=== PATIENT | female | born 1950 | race Caucasian/White ===

== ENCOUNTER 2023-05-14 06:03 | Day surgery (SDC) | payer MEDICARE, OTHER, SELFPAY ==
[2023-05-14] VITALS (11 sets, daily range): BP systolic 94–142; BP diastolic 44–72; BMI 42.2
[2023-05-14 07:03] LABS: Glucose - Point of Care 139 mg/dl (70-99)
[2023-05-14] MEDS: NSS 314 ML IV (07:10)
[2023-05-14] MEDS: LOW STRENGTH ASPIRIN 81 MG PO (07:18)
[2023-05-14] MEDS: NSS 1000 IV (08:57)
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
[2023-05-14 09:19] LABS: Glucose - Point of Care 111 mg/dl (70-99)
--- NOTE | 2023-05-14 09:47 | ITS.CL.CATH ---
[employer] - Catheterization
Cardiac Catheterization
Procedure Report:
RIGHT AND LEFT HEART CATHETERIZATION
Date of Procedure: May 14, 2023
Primary Care Physician: Dr. Elsi Collazo
Primary Wheelchair Rental Clerk: Dr. Haresh Bueno
Procedures performed:
1: Coronary angiography
2: Right heart catheterization
INDICATION: The patient is a 72-year-old woman with a past medical history significant for hypertension, diabetes, and obesity who was admitted to [facility] recently after being found on the floor by her son. She clearly had a E. coli
urinary tract infection which was treated. Echocardiography showed LV systolic dysfunction with a visually estimated ejection fraction of 35 to 40% with severe aortic stenosis mean gradient 48 mmHg with a calculated valve area of 0.52 cm� and an
aortic valve dimensionless index of 0.16. She is referred for right and left heart catheterization in preparation for aortic valve intervention. Of note, creatinine bumped and was 1.6 on preprocedure labs.
ACCESS: The patient was prepped and draped in usual sterile fashion. A 5 Slovak sheath was placed in the right radial artery using the Seldinger over the wire technique. A 6 Slovak sheath was then placed in the right common femoral vein using the
same technique.
HEMODYNAMIC FINDINGS (mmHg):
RA(a,v,m): 10, 8, 7
RV(s/d,EDP): 38/4, 10
PA(s/d/m): 38/19, 24
PCWP(a,v,m): 17, 21, 16
LV(s/d,EDP): Valve not crossed
Ao(s/d,m): 137/61, 89
Oxygen Saturations (mg/dl):
PA: 69% on room air
LV: 98% on room air
Cardiac Output/Index (l/min / l/min/m2):
Estimated Julio Cesar Method: 4.3 / 2.1
ANGIOGRAPHIC FINDINGS:
Single-plane Left Ventriculography performed in the MCCORD projection: Valve not crossed.
Coronary Angiography:
Dominance: Left
Left Main: Normal
Left Anterior Descending: The left anterior descending artery is a large-caliber vessel that gives rise to 3 medium caliber diagonal branches. These vessels appear widely patent with no clear flow-limiting disease.
Left Circumflex: The left circumflex is a relatively large caliber dominant system that gives rise to a large first obtuse marginal branch, small second obtuse marginal branch, a small left-sided posterior left ventricular branch, and a large
left-sided posterior descending artery. These vessels are widely patent with no focal disease.
Right Coronary: Nondominant vessel that is widely patent.
Fluoroscopy Time (min): 7.3
Radiation Dose (mGy): 518
DAP (Gy.cm2): 51
Closure device: None. A TR band was placed in the right wrist and hemostasis achieved with the venous sheath using manual pressure alone.
Complications: None.
ASSESSMENT:
1: Normal coronary arteries.
2: Mildly elevated left ventricular filling pressures.
CONCLUSIONS and RECOMMENDATIONS:
1: Proceed with TAVR evaluation.
2: Will repeat echo today to reassess LV function. Hold losartan for now given creatinine elevation. Will consider holding spironolactone if ejection fraction has recovered. Very close clinical follow-up.
Miguel Li M.D.
Copy to: Dr. Elsi Jackman
== END 2023-05-14 11:55 | disposition home or self-care (01) ==
LOC: CATH 06:03
PROVIDERS: ATTENDING PHYSICIAN Internal Medicine Interventional Cardiology; FAMILY PHYSICIAN Internal Medicine
DX: I08.3 Combined rheumatic disorders of mitral, aortic and tricuspid valves (principal); R55 Syncope and collapse; I13.0 Hypertensive heart and chronic kidney disease with heart failure and stage 1 through stage 4 chronic kidney disease, or unspecified chronic kidney disease; N18.30 Chronic kidney disease, stage 3 unspecified; E11.22 Type 2 diabetes mellitus with diabetic chronic kidney disease; Z87.440 Personal history of urinary (tract) infections; Z79.84 Long term (current) use of oral hypoglycemic drugs; I42.9 Cardiomyopathy, unspecified; Z87.891 Personal history of nicotine dependence; I45.10 Unspecified right bundle-branch block; Z91.81 History of falling; E66.9 Obesity, unspecified; Z79.82 Long term (current) use of aspirin
CPT/HCPCS: 82962; 93306; 93456; C1769; C1894; Q9967

== ENCOUNTER → 2023-05-22 09:26 | Outpatient (REF) | payer MEDICARE, OTHER, SELFPAY | LOC: RAD 09:26 | PROVIDERS: ATTENDING PHYSICIAN Nurse Practitioner Acute Care; FAMILY PHYSICIAN Internal Medicine | DX: I35.0 Nonrheumatic aortic (valve) stenosis (principal) | CPT/HCPCS: 74174; 75572; Q9967 ==

== ENCOUNTER 2023-06-05 09:23 | Inpatient (IN) | payer MEDICARE, OTHER, SELFPAY ==
[2023-05-28 08:27] VITALS: BMI 40.8
[2023-05-28 09:23] LABS: % Basophils 0.7 % (0-2); % Eosinophils 4.9 % (0-6); % Immature Granulocytes 0.5 % (0-0.5); % Lymphocytes 23.1 % (20.5-51.1); % Neutrophils 60.8 % (42.2-75.2); Absolute Eosinophils 0.2 10^3/uL (0-0.7); Absolute Monocytes 0.4 10^3/uL (0.1-0.6); Absolute Neutrophils 2.6 10^3/uL (1.4-6.5); Hematocrit 32.4 % (37.0-47.0); Hemoglobin 10.4 g/dL (12.0-16.0); Mean Corp Hgb Conc. 32.1 g/dL (33.0-37.0); Mean Corpuscular Hgb 27.7 pg (27.0-31.0); Mean Corpuscular Volume 86.4 fL (81.0-99.0); Mean Platelet Volume 10.3 fL (7.4-10.4); Nucleated Red Blood Cells % 0 %; Platelet Count 272 10^3/uL (130-400); Red Blood Cell Count 3.75 10^6/uL (4.20-5.40); Red Cell Dist. Width 15.5 % (11.5-14.5); White Blood Cell Count 4.3 10^3/uL (4.8-10.8)
[2023-05-28 09:41] LABS: INR 1.03; PT 13.6 Sec (11.4-14.6)
[2023-05-28 09:42] LABS: APTT 32.6 Sec (23.4-35.0)
[2023-05-28 09:44] LABS: Urine Albumin Negative (Neg - Trace); Urine Bilirubin Negative (Negative); Urine Character Clear (Clear); Urine Color Yellow; Urine Glucose Negative (Negative); Urine Ketone Negative (Negative); Urine Leukocyte Negative (Negative); Urine Nitrite Negative (Negative); Urine Occult Blood Negative (Negative); Urine Specific Gravity 1.015 (<1.030); Urine Urobilinogen Negative (Neg - 1+)
[2023-05-28 10:23] LABS: ALT (SGPT) 14 U/L (0-35); AST (SGOT) 26 U/L (14-36); Alkaline Phosphatase 86 U/L (38-126); Blood Urea Nitrogen 30 mg/dl (7-17); Calcium 9.4 mg/dl (8.4-10.2); Carbon Dioxide 25 mmol/L (22-30); Chloride 105 mmol/L (98-107); Direct Bilirubin 0.2 mg/dl (0.0-0.4); Estimated Creatinine Clearance 48 ml/min; Glucose 105 mg/dl (70-99); Sodium 135 mmol/L (135-145); Total Bilirubin 0.8 mg/dl (0.2-1.3); Total Protein 6.7 g/dl (6.3-8.2)
[2023-05-28 10:26] LABS: NT-proBNP 5810 pg/ml
--- NOTE | 2023-05-28 10:59 | CM ---
Met with Mrs. Melchor and her son in [facility]. She states prior to admission she resides alone in a one aoohn[place]bercc[place]pgne home with two steps to enter. She states prior to admission she was independent with ambulation and adls. She states she has
alot of DME in the home that was other family members, but she does not have any DME that she is using. She states she does not have a prescription plan and uses [facility]. She states her family will be checking in on her when she goes home. The
discharge plan is to return home with family support and a home visit by the Cardiothoracic Transitional Care Nurse when medically stable.
We reviewed pre-op and post- op routines. We reviewed the shower instructions. She has the soap, written instructions and the TAVR Educational Booklet. She was also given a copy of her lab work to take to her PCP. We also reviewed restrictions
including lifting and driving restrictions. We discussed a home visit by the Cardiothoracic Transitional Care Nurse. She is agreeable to a home visit. The plan is for TAVR on , 06/05/23.
[2023-05-28 12:16] LABS: Glycohemoglobin (HgbA1c) 6.5 % (4.0-5.6)
[2023-06-05] VITALS (21 sets, daily range): BP systolic 89–164; BP diastolic 38–122; BMI 41.0
[2023-06-05 10:13] LABS: Glucose - Point of Care 106 mg/dl (70-99)
--- NOTE | 2023-06-05 12:13 | W.PN.UPDATE ---
Addendum entered and electronically signed by Fernando Villareal MD 06/05/23 12:36:
Attending addendum: Patient has heterogeneous thyroid nodule/mass noted on CT scan. Primary cardiology was informed by Tucker text and reportedly the patient's primary care physician was made aware of these findings. Stressed the need for follow-up
with her PCP for thyroid issue
Original Note:
Update Note
Progress Note Update
Attending addendum patient seen and examined prior to the procedure. Chart reviewed and procedural details reviewed with patient. Risk and benefits were explained in depth and patient expressed some understanding and willingness to proceed
[2023-06-05] MEDS: ANCEF 10 IV (12:47)
[2023-06-05 13:45] LABS: ACT-LR - POC 329 Seconds (116-155)
--- NOTE | 2023-06-05 13:52 | W.CVOR.SURPR ---
CVOR Surgeon Immed Pre Op
-
I have examined this patient prior to performance of the scheduled procedure.
The patient's condition is unchanged from the time of the dictated/written History and
Physical and the patient is able to undergo the scheduled procedure.
--- NOTE | 2023-06-05 13:53 | W.IMMPOSTOP ---
Surgical Immed Post Op Note
-
[id number]
STRUCTURAL HEART PROCEDURE NOTE: TAVR
Preoperative Dx:
Severe aortic stenosis; P/M: 108/65, NIKOLAS 0.6)
Hx of CHF
HTN
RBBB
NIDDM
CKD3
Postoperative Dx:
Same
Procedures:
1) L CFV access w/ U/S and fluoroscopic guidance, Seldinger technique, 6Fr sheath placement
2) L BILLING ASSISTANT access w/ tactile, U/S, and fluoroscopic guidance, micropuncture technique, limited angiography, 6Fr sheath placement
3) R BILLING ASSISTANT access w/ tactile, U/S, and fluoroscopic guidance, micropuncture technique, limited angiography, 6Fr sheath placement
4) Placement of perclose sutures x 2 into R BILLING ASSISTANT, 8Fr sheath placement
5) Placement of temporary RV pacing wire w/ threshold testing
6) Placement of pigtail catheter in RCC w/ limited aortography & confirmation of coplanar valve deployment angle
7) Placement of Zhao E-sheath via R BILLING ASSISTANT (systemic heparinization)
8) Wire purchase across stenotic AV (AL-1, soft-tip straight, extra-stiff) w/ LVEDP assessment (20mmHg)
9) R TF TAVR w/ placement of 23mm SERVANDO 3 valve
10) Completion aortography
11) Completion TTE (mean gradient 7 & 9 mmHg, trace AI)
12) Removal of ntyhs-[id number]-nxlffp & Zhao E-sheath w/ R BILLING ASSISTANT mgmt w/ perclose sutures and manual pressure
13) Completion R ileofemoral angiography
14) Removal of temporary pacing wire
15) Removal of L BILLING ASSISTANT 6Fr sheath w/ mgmt w/ 6Fr angioseal and manual pressure
16) Removal of L CFV 6Fr sheath w/ manual pressure
Slot Key Person:
Dr. Fernando Villareal
Cardiac Surgeon:
Dr. Stevo Dc
Anesthesia:
MAC & local to B/L groins
Implants:
Zhao [employer]iences, 23mm Model [id number], Serial [id number]
Perclose x 2
6Fr angioseal x 1
Complications:
None
Cath Data:
Start: 1257hrs, Deploy: 1334hrs, End: 1346hrs
FT: 7.9min, mGy: 343.99, DAP: 42.8864, Contrast: 85mL
Post-TTE: mean 7 & 9mmHg, trace AI
Condition:
Stable/guarded to recovery
--- NOTE | 2023-06-05 13:58 | ITS.CL.TAVR ---
Lifestyle [facility] Farmer - TAVR Report
TAVR PRocedure
Procedure Report:
TRANSCATHETER AORTIC VALVE REPLACEMENT
Date of Procedure: June 05, 2023
Referring: Dr. Marc Bueno
Operators: Drs. Fernando Villareal and Stevo Dc
PROCEDURE PERFORMED:
1. Successful placement of 23 mm Zhao Kelly S3 aortic valve via right common femoral approach.
PREPROCEDURE NYHA CLASS: 3
DESCRIPTION OF PROCEDURE: The patient was referred for assessment of severe symptomatic aortic stenosis and following a comprehensive evaluation it was felt that transcatheter aortic valve replacement (TAVR) would be the most appropriate treatment.
Informed consent was obtained prior to the procedure. A 'time-out' was called and the procedural plan was verbally confirmed by anesthesia, surgery, perfusion, and blood bank laboratory professional staff.
Arterial was obtained in the left common femoral artery using ultrasound guidance and micropuncture technique. A 6 Fr sheath was inserted. Ultrasound guidance was then utilized to gain access into the left common femoral vein and a 6 Fr sheath was
inserted. Angiography of the left common femoral arteriotomy site confirmed appropriate positioning of the arteriotomy for closure with a 6 Saudi Arabian Angio-Seal at the conclusion of the procedure. Attention was then turned to the right common femoral
artery. Ultrasound guidance was utilized and access was obtained using ultrasound guidance. Angiography through the micropuncture sheath revealed appropriate positioning of the arteriotomy for preclosure with 2 Perclose devices. A 0.035 inch
J-wire was then reinserted through the micropuncture sheath and a 6 Fr sheath was then inserted.
A transvenous pacemaker wire was then advanced from the left common femoral vein to the right ventricular apex where excellent pacing thresholds were obtained.
An angled pigtail catheter was then advanced through the left common femoral sheath and positioned in the proximal ascending thoracic aorta / right coronary cusp. Angiography was performed to define a coplanar angle facilitating positioning and
delivery of the TAVR device. SRI LANKAN 26/CAU 1 appear to be a reasonable coplanar angle.
Preclosure of the right femoral arteriotomy was then performed using 2 Perclose devices and was followed by placement of an 8 Fr arterial sheath.
An AL-1 catheter was then advanced to the proximal descending thoracic aorta over 0.035' J-tipped guidewire. An Amplatz Extra-Stiff wire was then advanced through the AL-1 catheter to the proximal descending thoracic aorta. The AL-1 catheter was
removed and the supportive wire was utilized to facilitate delivery of the Zhao eSheath and dilator. Heparin, 8500 units, was administered and the ACT was monitored throughout the procedure.
The AL-1 catheter was then readvanced through the Zhao eSheath. The 0.035' stiff wire was allowed to drift across the aortic arch and the AL1 was positioned just above the aortic valve. The stenotic leaflets were probed with a Soft-tip Straight
wire. The aortic leaflets were crossed and the AL-1 catheter followed the Soft-tip Straight wire to the mid left ventricle. The wire was removed. Left ventricular end-diastolic pressures was measured at 20 mmHg.
An Amplatz Extra-Stiff wire with a generous curved tip was then advanced to the mid left ventricle. The AL-1 catheter was removed and the Amplatz wire was left in place in order to facilitate delivery of the Zhao delivery system. A 23 mm
Zhao KELLY S3 valve was brought to the table and the orientation of the valve on the balloon delivery system was confirmed by all operators. The KELLY S3 valve was advanced through the eSheath and into the proximal descending thoracic aorta.
The KELLY valve was centered on the delivery balloon and the entire system was retroflexed as across the aortic arch in an SRI LANKAN projection. The KELLY S3 delivery system was then advanced across the stenotic aortic leaflets. The pusher was
retracted. Angiography confirmed appropriate positioning of the valve and rapid pacing was undertaken. The 23 mm KELLY S3 valve was deployed during rapid pacing. Valve deployment was uneventful. Aortography following valve deployment suggested
wire associated aortic insufficiency. The Amplatz Extra-Stiff wire was removed and transthoracic echocardiogram was performed. Trace aortic insufficiency was noted with a post valve deployment gradient of 9 mmHg.
The Zhao valve delivery system was removed. The Zhao eSheath was removed and the Perclose knots were advanced to the arteriotomy site with excellent hemostasis. Angiography after the Perclose knots were advanced to the arteriotomy site and
demonstrated good distal runoff.
A 6 Saudi Arabian Angio-Seal was then utilized to obtain hemostasis in the left common femoral artery. The temporary pacemaker was removed and manual pressure was held over the 6 Saudi Arabian femoral venous access.
Protamine was administered to reverse the intravenous anticoagulant.
Fluoro Time: 7.9 min, Dose: 344 mGy, DAP : 42.9 Gy.cm2
CONCLUSIONS:
1. Severe symptomatic aortic stenosis. Successful deployment of a 23 mm KELLY S3 valve with a post valve deployment mean gradient of 9 mmHg with trace aortic insufficiency
2. The right arteriotomy was closed with 2 Perclose devices and the left common femoral arteriotomy was closed using a 6 Saudi Arabian Angio-Seal
Copy to: Dr. Marc Bueno
--- NOTE | 2023-06-05 14:35 | PTCARENOTE ---
Rec'd Pt s/p TAVR procedure after 1 hr of recovery, A,A+O, denies pain, bilat femoral dsgs D+I
[2023-06-05] MEDS: ANCEF IV (14:46)
--- NOTE | 2023-06-05 14:58 | W.PN.UPDATE ---
Update Note
Progress Note Update
Reviewed Ms. Melchor with the heart team in the preTAVR SDM meeting and decided on a 23mm S3 via right transfemoral access. Patient will resume aspirin post TAVR. LVEDP 20 mmHg. #23 mm S3 (serial# [id number]) successfully deployed via (R) TF access.
Post implant MG 9mmHg.
[2023-06-05 15:18] LABS: Glucose - Point of Care 121 mg/dl (70-99)
--- NOTE | 2023-06-05 15:37 | CM ---
Reviewed chart. Mrs. Melchor is in the operating room today. Prior to admission she resides alone in a one story rancher-style home with two steps to enter. Prior to admission she was independent with ambulation and adls. She has a lot of DME in
the home that was other family members but she is not using any of it. She does not have a prescription plan and uses [facility]. She has family members that will be checking in on her when she goes ho,e. Medical work-up in progress. The discharge
plan is to return home with family support and a home visit by the Cardiothoracic Transitional Care Nurse when medically stable.
[2023-06-05 15:45] LABS: ACT-LR - POC > 397 Seconds (116-155)
[2023-06-05 15:47] LABS: Blood Urea Nitrogen 33 mg/dl (7-17); Calcium 8.8 mg/dl (8.4-10.2); Chloride 101 mmol/L (98-107); Estimated Creatinine Clearance 58 ml/min; Glucose 113 mg/dl (70-99); Potassium 4.3 mmol/L (3.5-5.1); Sodium 135 mmol/L (135-145); eGFR 59.49
[2023-06-05 15:58] LABS: Carbon Dioxide 24 mmol/L (22-30)
[2023-06-05 17:22] LABS: Glucose - Point of Care 110 mg/dl (70-99)
[2023-06-05] MEDS: LASIX 20 MG PO (18:40)
[2023-06-05] MEDS: LIPITOR 20 MG PO (18:40)
--- NOTE | 2023-06-05 18:45 | PTCARENOTE ---
Pt sat OOB in chair all day, aurora well, incontinent of urine.
[2023-06-05 22:15] LABS: Glucose - Point of Care 282 mg/dl (70-99)
[2023-06-05] MEDS: ANCEF 5 IV (22:15)
[2023-06-05] MEDS: REFRESH EYE DROPS (PF) 1 DROPS OPHTH (22:15)
--- NOTE | 2023-06-05 23:22 | PTCARENOTE ---
Assumed care of patient at 19:00. Patient ambulates self in room w/out difficulty. Denies any pain or SOB. Tele monitor shows SR-David w/ BBBC and 1st AV block. HR in the 50-60s at rest. B/l groin sits soft upon palpation, no hematoma noted at this
time. Bilateral pedal pulses positive. Patient aware of POC,and can make needs known. Call kim in reach.
[2023-06-05] MEDS: DESENEX/MITRAZOL/ZEASORB 1 APPLIC TOPICAL (23:38)
[2023-06-06] VITALS (7 sets, daily range): BP systolic 131–165; BP diastolic 53–113; PULSE 63; O2SAT 92–97; BMI 40.9
--- NOTE | 2023-06-06 01:11 | W.PN.CT ---
Addendum entered and electronically signed by Stevo Dc MD 06/06/23 08:58:
I saw and examined the patient.
The PA's note was reviewed and I agree with the note.
Comment: Doing well
- Check echocardiogram today
- ASA only
- Rhythm-star outpatient monitoring
- D/C planning for hopefully later today
Original Note:
Today's Communication / Plan
-
-pod #1
-no significant issues overnight. Patient has some mild left eye tearing and was started on artificial tears.
-b/l groins are stable.
-SB/NSR overnight. No brett or pauses
-EKG, chest x-ray and echo today
-current meds (ASA, Lipitor, Lasix). Beta-blockers on hold due to EKG changes postoperatively
-appreciate Cardiology input
-encourage IS and ambulation
-Possible DC after echo and rhythm star placement
Assessment / Plan
-
- Severe aortic stenosis
- Congestive heart failure
- Hypertension
- Chronic right bundle branch block
- Isk-mbkmnmp-wueadvrcg diabetes mellitus
- Chronic kidney disease stage III
-Postoperative bifascicular block
Subjective
Procedure
s/p Right transfemoral transcatheter aortic valve replacement with placement of #23 mm SERVANDO [address] Dc; POD #1
-
Date of Service: June 06, 2023
Objective Data
-
06/06/23 02:35
06/06/23 02:35
PT 13.6 Sec (11.4-14.6) 05/28/23 08:44
INR 1.03 05/28/23 08:44
APTT 32.6 Sec (23.4-35.0) 05/28/23 08:44
Vital Signs
Vital Signs
Temp Pulse Resp BP Pulse Ox
98 F 56 18 148/51 94
06/05/23 22:12 06/05/23 22:12 06/05/23 22:12 06/05/23 22:12 06/05/23 22:12
CT Intake/Output/Weight
06/05/23 06/05/23 06/06/23
06:59 18:59 06:59
Intake Total 1000 / 1000
Output Total 150 / 450 300 / 450
Balance 850 / 550 -300 / 550
SaO2: 94
Data Reviewed
-
Lab Results: Results Reviewed
Medications: Active Meds Reviewed
Chest X-Ray: Report Reviewed
[2023-06-06 03:24] LABS: Hematocrit 30.1 % (37.0-47.0); Mean Corp Hgb Conc. 33.2 g/dL (33.0-37.0); Mean Corpuscular Hgb 28.7 pg (27.0-31.0); Mean Corpuscular Volume 86.2 fL (81.0-99.0); Mean Platelet Volume 10.7 fL (7.4-10.4); Platelet Count 259 10^3/uL (130-400); Red Blood Cell Count 3.49 10^6/uL (4.20-5.40); White Blood Cell Count 4.7 10^3/uL (4.8-10.8)
[2023-06-06 03:54] LABS: Blood Urea Nitrogen 35 mg/dl (7-17); Calcium 9.3 mg/dl (8.4-10.2); Carbon Dioxide 23 mmol/L (22-30); Chloride 99 mmol/L (98-107); Estimated Creatinine Clearance 48 ml/min; Glucose 212 mg/dl (70-99); Potassium 4.6 mmol/L (3.5-5.1); Sodium 134 mmol/L (135-145)
[2023-06-06] MEDS: ASPIR LOW (ENTERIC COATED) 81 MG PO (08:30)
[2023-06-06] MEDS: LASIX 20 MG PO (08:30)
[2023-06-06] MEDS: DESENEX/MITRAZOL/ZEASORB 1 APPLIC TOPICAL (08:31)
--- NOTE | 2023-06-06 08:58 | CM ---
Reviewed chart. Met with Mrs. Melchor to review discharge plans. she states she is feeling well and maybe able to go home soon. We reviewed a home visit by the Cardiothoracic Transitional Care Nurse. She is agreeable to a home visit. She states she
will have family members checking on her when she goes home. Prior to admission she resides alone in a one story home with two steps to enter. Prior to admission she was independent with ambulation and adls. She does not have a prescription plan
and she uses [facility]. Medical work-up in progress. The discharge plan is to return home with family support and a home visit by the Cardiothoracic Transitional Care Nurse when medically stable.
--- NOTE | 2023-06-06 11:35 | W.PN.CARDCBS ---
Addendum entered and electronically signed by Isatu Yuen DO 06/06/23 14:57:
I saw and examined the patient.
The [employer] Operator's note was reviewed and I agree with the note.
Comment: Seen and examined sitting out of bed to chair and anxious to return home following TAVR 06/05/2023. Offers no complaints. Denies chest pain or pressure. No groin pain. No dizziness. Denies shortness of breath.
GEN: NAD aaox3
HEENT: mmm
LUNGS: Bronchovesicular breath sounds. Clear bilaterally
CV: Reg, S1/S2, no murmur. No rub
ABD: soft, BS+, NT/ND
EXT: No edema. Right groin sites without ecchymosis or bleeding. Nontender.
NEURO: Gross non-focal
Plan:
-Presented 06/05/2023 for elective TAVR status post s/p 23 mm Zhao Kelly S3 aortic valve via right common femoral approach
-Patient reports that she is feeling great. She was able to ambulate around the unit today with improved shortness of breath. She denies chest pain or shortness of breath.
-Chronic right bundle branch block but did develop post TAVR bifascicular block. Also noted to have bradycardia. Metoprolol XL 100mg daily discontinued. Heart rate has improved into the 60s bpm.
-Rhythm Star mobile cardiac telemetry placed prior to discharge for 2 weeks
-Reviewed post TAVR echocardiogram from 06/06/2023 with patient which showed preserved ejection fraction with stable peak/mean gradients 30/16 mmHg. Patient will need 1 month post TAVR echo.
-Discussed importance of SBE prophylaxis with amoxicillin 2 g 1 hour prior to dental visit
-Patient on Toprol prior to admission for hypertension. This has been discontinued. Now on lisinopril 5 mg daily. Dose may need to be uptitrated as outpatient if blood pressure remains suboptimally controlled.
-Creatinine stable at 1.2 (at baseline)
-Continue atorvastatin, Lasix, aspirin and metformin.
-Patient seen and evaluated by cardiac rehab.
-Outpatient cardiology follow-up has been arranged with Dr. Bueno
Original Note:
Today's Communication / Plan
-
Discontinue metoprolol
Start lisinopril for blood pressure control
Discharge home with outpatient monitor
Echo in 1 month as outpatient
Outpatient cardiology visit arrange
Impression / Plan
-
PCP: Elsi Jackman
Pipeline Gang Supervisor: Marc Bueno
Impression:
Severe symptomatic aortic stenosis
s/p 23 mm Zhao Kelly S3 aortic valve via right common femoral approach 06/05/2023
Post TAVR bifascicular block
Heart failure with preserved ejection fraction
Hypertension
Chronic right bundle branch
Insulin-dependent diabetes
Chronic kidney disease
Echo 06/06/2023: EF 60 to 65%, stage II DD, mildly dilated RV, dilated LA, mild to moderate MR, mild TR w/ PAP 35-40 mmhg, status post #23 mm KELLY 3 TAVR peak/mean gradients 30/16 mmhg, trivial pericardial effusion
Echo 06/05/2023 (post implant): #23 mm Zhao transcatheter aortic valve replacement present with peak/mean gradients 16/9 mmHg with trace AI. Mitral regurgitation was mild. Trivial pericardial effusion present.
Cardiac catheterization 05/14/2023 demonstrated no significant coronary artery disease.
Plan:
-Presented 06/05/2023 for elective TAVR status post s/p 23 mm Zhao Kelly S3 aortic valve via right common femoral approach
-Patient reports that she is feeling great. She was able to ambulate around the unit today with improved shortness of breath. She denies chest pain or shortness of breath.
-Chronic right bundle branch block but did develop post TAVR bifascicular block. Also noted to have bradycardia. Metoprolol discontinued. Heart rate has improved into the 60s bpm. Patient will go home with 2 week real time monitor.
-Reviewed post TAVR echocardiogram from 06/06/2023 with patient which showed preserved ejection fraction with stable peak/mean gradients 30/16 mmHg. Patient will need 1 month post TAVR echo.
-Discussed importance of SBE prophylaxis with amoxicillin 2 g 1 hour prior to dental visit
-Patient on Toprol prior to admission for hypertension. This has been discontinued. Now on lisinopril 5 mg daily. Dose may need to be uptitrated as outpatient if blood pressure remains suboptimally controlled.
-Creatinine stable at 1.2 (at baseline)
-Continue atorvastatin, Lasix, aspirin and metformin.
-Patient seen and evaluated by cardiac rehab.
-Outpatient cardiology follow-up has been arranged with Dr. Bueno
Progress Note - Pipeline Gang Supervisor
Subjective
Date of Service: June 06, 2023
Patient seen and examined. Patient reports she is feeling great. She was able to ambulate around unit with significantly improved exercise tolerance and felt less short of breath. She also reports her color looks much better. She denies chest
pain, palpitations, dizziness or lightheadedness. She denies pain or discomfort at the femoral access sites.
Objective
Labs:
06/06/23 02:35
06/06/23 02:35
Labs
Hgb 10.0 g/dL (12.0-16.0) L 06/06/23 02:35
Hct 30.1 % (37.0-47.0) L 06/06/23 02:35
Plt Count 259 10^3/uL (130-400) 06/06/23 02:35
PT 13.6 Sec (11.4-14.6) 05/28/23 08:44
INR 1.03 05/28/23 08:44
APTT 32.6 Sec (23.4-35.0) 05/28/23 08:44
Sodium 134 mmol/L (135-145) L 06/06/23 02:35
Potassium 4.6 mmol/L (3.5-5.1) 06/06/23 02:35
BUN 35 mg/dl (7-17) H 06/06/23 02:35
Creatinine 1.2 mg/dL (0.6-1.0) H 06/06/23 02:35
Glucose 212 mg/dl (70-99) H 06/06/23 02:35
Vital Signs and I&O:
Vital Signs
Temp Pulse Resp BP Pulse Ox
98.1 F 58 18 143/51 96
06/06/23 07:01 06/06/23 09:00 06/06/23 07:01 06/06/23 08:30 06/06/23 07:01
Vital Signs
Temp Pulse Resp BP Pulse Ox
98.1 F 58 18 143/51 96
06/06/23 07:01 06/06/23 09:00 06/06/23 07:01 06/06/23 08:30 06/06/23 07:01
Intake & Output
06/04/23 06/05/23 06/06/23 06/07/23
06:59 06:59 06:59 06:59
Intake Total 1000 / 1000
Output Total 1000 / 1000
Balance 0 / 0
Physical Exam
Physical Exam
GEN: No distress, awake, Ox3
HEENT: supple, anicteric, mmm
LUNGS: CTA, no wheezes/rales
CV: Reg, S1/S2, 1/6 sys murmur
ABD: soft, BS+, NT/ND
EXT: No edema, clubbing or cyanosis
NEURO: Gross non-focal
SKIN: No rash, warm, dry, pink
--- NOTE | 2023-06-06 12:08 | W.PN.UPDATE ---
Update Note
Progress Note Update
Reviewed the rhythm star monitor with patient including how to apply, charge, report symptoms and return to the company after 14 days. Allowed for and answered questions. Monitor left at bedside with the patient.
--- NOTE | 2023-06-06 12:32 | W.PN.ANS.POP ---
Anesthesia Post Operative
- Anesthesia Post Op Note
Vital Signs Stable-See Nursing Note: Yes
Airway Patent: Yes
Adequate Pain Control: Yes
Change in Mental Status: No
Current Postoperative Nausea & Vomiting: No
Anesthesia Complications: No
General Anesthetic Recall: No
Unplanned Admission: No
Post Op Hydration Adequate: Yes
[2023-06-06] MEDS: ZESTRIL 5 MG PO (12:47)
--- NOTE | 2023-06-06 13:14 | W.DCSUMMARY ---
Discharge Summary
Discharge Data
Date of Admission: 06/05/23
Date of Discharge: 06/06/23
-
Pending Results: No
Hospital Course
Primary care physician: Elsi Jackman
Outpatient court of appeals judge: Marc Bueno
Inpatient consultants: ARANZA torres.
Procedures:
1. Right transfemoral TAVR #23 Zhao SERVANDO 3
Primary Diagnosis:
1. Severe symptomatic aortic stenosis
Secondary Diagnoses:
1. Hypertension
Heart failure with reduced ejection fraction
Qce-dlfwwlf-sdzdrpsya diabetes mellitus
CKD stage III
Chronic right bundle branch block
Nonischemic cardiomyopathy
History of tobacco use
HPI: Patient is a 72-year-old female with a history of syncope along with severe symptomatic aortic stenosis. She was seen in consultation by Dr. Stevo Dc for consideration of TAVR. She was found to be an acceptable candidate and was
scheduled for surgery.
Hospital course: Patient was admitted to [facility] on the morning of 06/06/2023 and later that morning was brought to the cardiac catheterization lab where she underwent a right transfemoral TAVR implantation with #23 Zhao SERVANDO 3 valve.
She tolerated tolerated the procedure well and was returned to the IVU in stable condition. Postprocedure EKG showed sinus bradycardia with first-degree AV block. There is a new bifascicular block. Patient has a pre-existing first-degree AV
block along with a right bundle branch block. Her first night in the IVU was uneventful. Following morning EKG again showed first-degree AV block with a right bundle branch block. Morning chest x-ray essentially clear. She was able to be
discharged later in the afternoon postoperative day #1. Vital signs at time of discharge she was afebrile blood pressure 154/58 pulse 57 and O2 sat was 96% on room air. Discharge labs were as follows white blood cell count 4.7, hemoglobin 10,
hematocrit 30, platelets 259 BUN 35 and creatinine 1.2. Both groins were clean and dry without hematoma and distal pulses were intact. She was given a full set of discharge instructions and follow-up appointments with Dr. Bueno. She will also
have a echo performed in 1 month.
Home medication changes:
Discharge Plan
-
Patient Disposition: Home (Routine Discharge)
Discharge Diagnosis/Procedures: TF TAVR
Condition: Good
Diet: Low Fat and 2 Gram Sodium
Activity: As tolerated
Driving Restrictions: No driving for 1 week
Bathing Restrictions: OK to Shower
Blood Work: BMP in one week (CKD with new lisinopril)
Others Tests: Your 30-follow up echocardiogram is scheduled for: 07/02/2023 14:[address] Bueno's office [address]
Other Services: Cardiac Rehab
Specialty Instructions: Weigh Daily- Call MD for wt gain/loss 3 lbs overnight/5 lbs in 1 week
Activity Restrictions/Additional Instructions:
Please call to make appointments for Phase II Cardiac Rehab:
[facility]
[address] [place] [address]
[phone]
Referrals:
CT Transitional Care Nurse [Outside] - in one to two days
(
The Cardiothoracic Transitional Care Nurse will call you to set up a visit in 1-2 days.)
Elsi Jackman MD [Family Provider] - in four to six weeks (Please make an appointment in four to six weeks. )
Marc Bueno MD [Active] - 06/25/23 2:15 pm
Prescriptions:
New
acetaminophen 325 mg Tablet
650 mg PO Q6HPRN PRN (Reason: MATTHEWS, mild pain, or fever >101F) Qty: 0 0RF
lisinopril 5 mg Tablet
5 mg PO DAILY Qty: 30 1RF
Continued
atorvastatin 20 mg Tablet
20 mg PO QPM
aspirin 81 mg Tablet,Delayed Release (Dr/Ec)
81 mg PO DAILY
furosemide [Lasix] 20 mg Tablet
20 mg PO DAILY
Held
metformin 500 mg Tablet
1,000 mg PO BID
Hold Instructions: Resume on 06/07/23. resume PM dose on 06/06
Discontinued
metoprolol succinate 100 mg Tablet Extended Release 24 Hr
100 mg PO DAILY
Discharge Orders:
Discharge Patient (As Directed); Ordered 06/06/23
Ordered By: Juliocesar Ken
Care Plan Goals
Care Plan Goals:
Problem: Readiness for enhanced knowledge related to diagnosis and treatment plan
Goal: Understand your diagnosis and treatment plan needs, including medications if applicable.
Instructions: Know your diagnosis, underlying causes and treatment plan options, including medications if applicable. Consult with your health care team to learn about your diagnosis and treatment plan, including medications if applicable.
Discharge Date and Time
Print Language: SOMALI
== END 2023-06-06 14:41 | disposition home or self-care (01) | DRG 267 ==
LOC: IVU 09:23
PROVIDERS: Nurse Practitioner Acute Care; Physician Assistant Surgical; ADMITTING PHYSICIAN Thoracic Surgery (Cardiothoracic Vascular Surgery); FAMILY PHYSICIAN Internal Medicine
PROC: 02RF38Z Replacement of Aortic Valve with Zooplastic Tissue, Percutaneous Approach (ICD-10-PCS; 2023-06-05)
DX: I35.0 Nonrheumatic aortic (valve) stenosis (principal); Z00.6 Encounter for examination for normal comparison and control in clinical research program; I13.0 Hypertensive heart and chronic kidney disease with heart failure and stage 1 through stage 4 chronic kidney disease, or unspecified chronic kidney disease; I45.2 Bifascicular block; I50.22 Chronic systolic (congestive) heart failure; I42.8 Other cardiomyopathies; E11.22 Type 2 diabetes mellitus with diabetic chronic kidney disease; N18.30 Chronic kidney disease, stage 3 unspecified; I44.0 Atrioventricular block, first degree; R00.1 Bradycardia, unspecified; Z79.82 Long term (current) use of aspirin; Z79.84 Long term (current) use of oral hypoglycemic drugs; Z79.899 Other long term (current) drug therapy; Z87.891 Personal history of nicotine dependence
CPT/HCPCS: 93308; 33361; 36415; 71045; 71046; 80048; 80053; 81003; 82248; 82962; 83036; 83880; 85025; 85027; 85347; 85610; 85730; 86850; 86900; 86901; 86920; 87040; 87070; 93005; 93306; 93321; 93325; C1760; C1769; C1894; Q9967

== ENCOUNTER → 2023-08-20 12:41 | Outpatient (REF) | payer MEDICARE, OTHER, SELFPAY ==
[2023-08-20 12:53] VITALS: BP 169/57; BP_SYST 69
== END ==
LOC: RADI 12:41
PROVIDERS: ATTENDING PHYSICIAN Otolaryngology Facial Plastic Surgery; FAMILY PHYSICIAN Internal Medicine
DX: E04.1 Nontoxic single thyroid nodule (principal)
CPT/HCPCS: 88173; 10005

== ENCOUNTER → 2023-10-22 14:04 | Outpatient (REF) | payer MEDICARE, OTHER, SELFPAY | LOC: RCS 14:04 | PROVIDERS: ATTENDING PHYSICIAN Internal Medicine | DX: I10 Essential (primary) hypertension (principal); I35.0 Nonrheumatic aortic (valve) stenosis | CPT/HCPCS: 93306 ==